=== PATIENT | male | born 2000 | race African-American/Black ===

== ENCOUNTER 2019-02-14 20:45 | Inpatient (IN) | payer OTHER ==
--- NOTE | 2019-02-14 21:15 | RAD ---
TWO VIEW CHEST: 02/14/19 HISTORY: Fever. Lungs are clear. Heart and mediastinum are unremarkable. IMPRESSION: No acute process. POS: [facility]
[2019-02-14 21:22] LABS: Mean Corpuscular Volume 85.5 fL (78.0-98.0)
[2019-02-14] MEDS ORDERED: Ibuprofen 800 MG TAB ONE (21:32)
[2019-02-14 21:33] LABS: Band 3 % (5-11); Lymphocytes 48 % (28-48); MDiff Complete? YES; Mean Corpuscular Hemoglobin 29.1 pg (25.0-35.0); Mean Platelet Volume 8.3 fL (7.4-10.4); Monocytes 2 % (0-4); Neutrophil 47 % (31-61); Platelet Count 129 thou/uL (130-400); Platelet Morphology Comment Appears Adequate; Red Blood Cell (RBC) Count 5.16 mill/uL (4.00-5.20); White Blood Cell (WBC) Count 3.8 thou/uL (4.8-10.8)
[2019-02-14 21:37] LABS: Acetaminophen Less than 6.0 mcg/mL (10.0-30.0); Alcohol Less than 10 mg/dL (Less than 10); Salicylate Less than 8.0 mg/dL (15.0-30.0)
[2019-02-14 21:39] LABS: ALT (SGPT) 18 U/L (8-55); AST (SGOT) 25 U/L (5-34); Albumin 4.1 g/dL (3.5-5.0); Alkaline Phosphatase 133 U/L (Less than 750); Anion Gap 17 mmol/L (10-20); BUN (Urea Nitrogen) 20 mg/dL (8.9-20.6); Bilirubin, Total 0.7 mg/dL (0.2-1.2); Calc. Creatinine Clearance 0 mL/min (70-130); Calcium 9.4 mg/dL (7.8-10.44); Carbon Dioxide 23 mmol/L (22-29); Chloride 103 mmol/L (98-107); Estimated GFR-MDRD 69; Globulin 4.4 g/dL (2.4-3.5); Glucose 84 mg/dL (70-105); Potassium 4.2 mmol/L (3.5-5.1); Protein, Total 8.5 g/dL (6.0-8.3); Sodium 139 mmol/L (136-145)
[2019-02-14 21:54] LABS: Bilirubin Negative (Negative); Blood, Urine Negative (Negative); Clarity CLEAR (Clear); Glucose, Urine (Dipstick) Negative (Negative); Leukocyte Negative (Negative); Nitrite Negative (Negative); Protein, Urine (Dipstick) Negative (Neg-Trace); Specific Gravity, Urine 1.022 (1.002-1.036); pH, Urine 6.5 (5.0-9.0)
[2019-02-14 22:03] LABS: Amphetamine Not Detected (NotDetected); Barbiturates Screen Not Detected (NotDetected); Benzodiazepine Screen Not Detected (NotDetected); Cocaine Metabolite Screen Not Detected (NotDetected); Medtox Control Line Valid? VALID (VALID); Medtox Reader # READER 4; Methadone Not Detected (NotDetected); Methamphetamine Not Detected (NotDetected); Opiate Screen Not Detected (NotDetected); Oxycodone Screen Not Detected (NotDetected); Phencyclidine (PCP) Not Detected (NotDetected); THC/Cannabinoid Screen Not Detected (NotDetected); Tricyclic Screen Not Detected (NotDetected)
[2019-02-14] MEDS ORDERED: Acetaminophen 500 MG TAB ONE (22:19)
[2019-02-15 00:01] LABS: HIV (1/2) Antibody/Antigen Non-Reactive (NonReactive); HIV 1/2 INDEX 0.13 S/CO (<1.00)
[2019-02-15] MEDS ORDERED: Lidocaine 1% (PF) 30 ML VIAL ONE (00:01)
[2019-02-15] MEDS ORDERED: Lorazepam 2 MG/ML VIAL ONE (00:15)
[2019-02-15] MEDS ORDERED: cloNIDine 0.1 MG TAB ONE (00:56)
[2019-02-15] MEDS ORDERED: Dexamethasone 10 MG/ML VIAL ONE (00:56)
[2019-02-15] MEDS ORDERED: Cefepime 1 GM VIAL ONE (00:56)
[2019-02-15 01:02] LABS: CSF Source CSF; Tube # 4
[2019-02-15 01:05] LABS: Clarity Clear (Clear)
[2019-02-15 01:11] LABS: CSF Source CSF; RBC Count - Manual 1 /cumm (None Seen); WBC/NonHematics Count - Manual 1 /cumm (0-5)
[2019-02-15 01:20] LABS: Clarity Clear (Clear); Tube # 1; WBC/NonHematics Count - Manual 3 /cumm (0-5)
[2019-02-15 01:21] LABS: RBC Count - Manual 391 /cumm (None Seen)
[2019-02-15 01:37] LABS: MONO NEGATIVE CONTROL ZONE White (Negative) (White); MONO POSITIVE CONTROL Pink Line (Positive) (PINK/RED); Mononucleosis NEGATIVE (NEGATIVE)
[2019-02-15 01:38] LABS: Color Of CSF Supernatant COLORLESS (Colorless); Tube # 2; Unspun CSF Color COLORLESS (Colorless)
[2019-02-15 01:40] LABS: CSF, Glucose 66 mg/dl (40-70); CSF, Protein 19 mg/dL (15-40)
[2019-02-15] MEDS ORDERED: Senokot S 8.6-50 MG TAB PO PRN (02:41)
[2019-02-15] MEDS ORDERED: Acetaminophen 325 MG TAB PO PRN (02:41)
[2019-02-15 03:32] VITALS: BMI 25.7
[2019-02-15] MEDS: Sodium Chloride 0.9% 1,000 ML IV SCH ×3 (04:01→20:53)
--- NOTE | 2019-02-15 04:24 | HP ---
CHIEF COMPLAINT: Fever. HISTORY OF PRESENT ILLNESS: The patient is a very pleasant 18-year-old male with no past medical history who presents to the hospital with complaints of fever. The patient recently moved from [facility] about 2 years ago. 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 The patient is very health conscious, goes to the gym, does heavy lifting and has been doing that since he was in [facility]. The patient also states that he has had a history of malaria back in 2017 when he was in [facility], which was treated according to him. The patient stated that he was at work when he started noticing some significant pain to his neck area. Initially, he attributed that to lifting in the gym. However, the pain got worse, which followed by shaking and back and joint pain. At this time, he told his food service supervisor, who prescribed him Aleve and the patient came home. The patient stated that he was very cold. His sister then gave him Theraflu that night and he was able to sleep. However, the patient states that he has been having night sweats to the point that he has to change his clothes. The patient then made an appointment at [facility], however, prior to getting to the appointment, he had some shrimp and after having the shrimp, he noticed his ears feeling hot and itchy and he broke out into a little rash. He denied any respiratory symptoms. At this time, when he went to his appointment to [facility], they treated his rash, I believe it is with some steroids, I am not exactly sure since the patient does not recall the name of the medication. The patient stated that he started feeling well. He actually was improving, however, yesterday evening around 5:00 p.m., while he was playing video games with his brother, he started having the similar symptoms that he had on Monday. He felt cold, was shaking, started having body aches and pains. At this time, he went to the [facility], however, [facility] was closed, so he came into the ER for further evaluation. The patient denies any weight loss. However, he has been having on and off night sweats since 2016. The patient states that at least once a year, he normally gets ill. PAST MEDICAL HISTORY: Denies any past medical history. PAST SURGICAL HISTORY: Denies. ALLERGIES: HE IS ALLERGIC TO SHELLFISH. HE HAS HAD SIMILAR ALLERGIC REACTION WHEN HE ATE SHRIMP AND CRAB. FAMILY HISTORY: Denies any history of heart disease, cancers, or strokes. MEDICATIONS: He takes none. SOCIAL HISTORY: He denies any alcohol use, drug use, or smoking history. He has been sexually active in the past and has used protection. REVIEW OF SYSTEMS: All negative except for the ones mentioned above in the HPI. PHYSICAL EXAMINATION: VITAL SIGNS: As the following; temperature of 102 in the ER, heart rate of 115, blood pressure of 120/60. GENERAL: He is awake, alert, and oriented x3. Does not appear in any distress. HEENT: Normocephalic, atraumatic. No lymphadenopathy noted. Pupils are equal and reactive to light. CV: S1, S2 present. No murmurs, rubs, or gallops. LUNGS: Clear to auscultation. No rhonchi or wheezes noted. ABDOMEN: Soft and nontender. Bowel sounds are present x2. EXTREMITIES: No edema. Pedal pulses present x2. NEUROVASCULAR: No focal deficits noted. SKIN: No cuts, lesions or bruises noted. He does have some tattooing around. LABORATORY RESULTS: As of the following; WBC of 3.8, hemoglobin of 15.0, hematocrit of 44.1, platelets of 129. Chemistry; sodium of 139, potassium 4.2, BUN of 20, creatinine of 1.33. Troponin is negative. C-reactive protein was 4.20. LDH was 397. Procalcitonin was 4.68. His urine appeared to be normal. He did have an LP, which indicated wbc's of 1 and rbc's of 1 in tube 4, and 3 wbc's in tube 1 and 391 rbc's in tube 1. Glucose was 66, protein was 19. The patient also had an HIV test, which was negative. He had a UDS, which was negative. Brantley screen was negative. ASSESSMENT AND PLAN: The patient is a 18-year-old male who presents to the hospital with complaints of fever. 1. Fever of unknown source. Given the patient's recent move from [place] to the [facility], one would rule out any infectious etiology such as malaria or TB. Also autoimmune is another possibility and also lymphoma is another possibility. I will go ahead and order a CT chest, abdomen, and pelvis with contrast to rule out any abnormalities such as lymphoma or any other source of his infection. I have already ordered an BARBARA. We will also check an LDH. We will also check an interferon gold. I will consult Infectious Disease and the patient might need a peripheral smear for malaria. His human immunodeficiency virus was negative. Blood cultures are drawn. We will send cultures for cerebrospinal fluid. The patient denies any recent pet exposure or any farming. 2. Pancytopenia. Again, this could be secondary to either autoimmune versus something that is going on currently. A viral etiology is definitely a possibility. His influenza that was checked was negative. Also, a strep was checked, which was negative. We will continue to monitor. We will prophylactically treat it with antibiotics and continue to monitor. I will also start him on some IV hydration. Job ID: [id number]
[2019-02-15] MEDS: Piperacillin/Tazobactam 3.375 GM in Sodium Chloride 0.9% 100 ML IVPB SCH ×2 (05:10→12:30)
[2019-02-15 05:27] LABS: #Eosinphils 0.1 thou/uL (0.0-0.7); #Lymphocytes 0.6 thou/uL (1.20-3.40); #Monocytes 1.2 thou/uL (0.11-0.59); %Basophils 0.1 % (0.0-1.0); %Eosinophils 0.6 % (0.0-10.0); %Lymphocytes 5.1 % (28.0-48.0); %Monocytes 11.1 % (0.0-4.0); %Neutrophils 83.1 % (31.0-61.0); Hemoglobin 13.8 g/dL (14.0-18.0); Mean Corpuscular HGB CONC 31.6 g/dL (32.0-36.0); Mean Corpuscular Hemoglobin 27.7 pg (25.0-35.0); Mean Corpuscular Volume 87.5 fL (78.0-98.0); Mean Platelet Volume 8.1 fL (7.4-10.4); Platelet Count 115 thou/uL (130-400); RBC Distribution Width 10.9 % (11.5-14.5); White Blood Cell (WBC) Count 10.8 thou/uL (4.8-10.8)
[2019-02-15 05:42] LABS: Anion Gap 12 mmol/L (10-20); BUN (Urea Nitrogen) 15 mg/dL (8.9-20.6); Calc. Creatinine Clearance 106 mL/min (70-130); Calcium 8.6 mg/dL (7.8-10.44); Carbon Dioxide 19 mmol/L (22-29); Chloride 109 mmol/L (98-107); Estimated GFR-MDRD Greater than 90; Glucose 141 mg/dL (70-105); Potassium 4.3 mmol/L (3.5-5.1); Sodium 136 mmol/L (136-145)
--- NOTE | 2019-02-15 07:33 | CT ---
PRELIMINARY REPORT/[facility]/EMERGENCY AFTER HOURS PROCEDURE: EXAM: CT Head Without Contrast EXAM DATE/TIME: 02/15/2019 12:08 AM CLINICAL HISTORY: 18 years old, male; Pain; Patient HX: Er 5. Headache; 18 yo male presents with a fever for 1.5days. He endorses chills as well. Denies cough, runny nose, shortness of breath. Says he was tested for the flu yesterday and it was negative. TECHNIQUE: Imaging protocol: Axial computed tomography images of the head without contrast. COMPARISON: No relevant prior studies available. FINDINGS: Brain: Normal. No hemorrhage. Unremarkable white matter. No mass effect. Ventricles: Normal. No ventriculomegaly. Bones/joints: Unremarkable. No acute fracture. Sinuses: Visualized sinuses are unremarkable. No fluid levels. Mastoid air cells: Visualized mastoid air cells are well aerated. No mastoid effusion. Soft tissues: Unremarkable. IMPRESSION: No acute intracranial abnormality. Thank you for allowing us to participate in the care of your patient. Dictated and Authenticated by: Zafar Crowley MD 02/15/2019 12:34 AM Central Time ([place] & [place]) Final report by Dr. Hameed Emergency after-hours study CT BRAIN NONCONTRAST: DATE: 02/15/2019 HISTORY: 18-year-old male with headache and fever FINDINGS: There is no evidence of acute intra-axial or extra-axial hemorrhage. There is no midline shift or any other mass effect. There is no extra-axial fluid collection. The ventricles are normal in size and configuration. The tympanomastoid cavities, and the upper portions of the paranasal sinuses included in these images, are grossly clear. Calvarium is intact. Agree with preliminary report by [facility]. IMPRESSION: Normal. Transcribed Date/Time: 02/15/2019 7:42 AM
--- NOTE | 2019-02-15 08:30 | CT ---
PRELIMINARY REPORT/[facility]/EMERGENCY AFTER HOURS PROCEDURE: EXAM: CT Chest With Contrast EXAM DATE/TIME: 02/15/2019 2:33 AM CLINICAL HISTORY: 18 years old, male; Signs and symptoms; Patient HX: Er 5. . Fever; PT reports shaking chills starting several days ago. Reports on and off fevers. Reports neck pain and back pain. TECHNIQUE: Imaging protocol: Axial computed tomography images of the chest with intravenous contrast. Coronal reformatted images were created and reviewed. COMPARISON: No relevant prior studies available. FINDINGS: Lungs: Normal. No consolidation. No masses. Pleural space: Normal. No pneumothorax. No pleural effusion. Heart: Normal. No cardiomegaly. No pericardial effusion. Mediastinum: Esophagus is unremarkable. Pulmonary arteries: Study not protocoled to evaluate for pulmonary embolus. No evidence of a large ce ntral PE. Aorta: Normal. No aortic aneurysm. Lymph nodes: Unremarkable. No enlarged lymph nodes. Bones/joints: Unremarkable. No acute fracture. Soft tissues: Unremarkable. IMPRESSION: No acute findings. EXAM: CT Abdomen and Pelvis With Contrast EXAM DATE/TIME: 02/15/2019 2:33 AM CLINICAL HISTORY: 18 years old, male; Signs and symptoms; Patient HX: Er 5. . Fever; PT reports shaking chills starting several days ago. Reports on and off fevers. Reports neck pain and back pain. TECHNIQUE: Imaging protocol: Axial computed tomography images of the abdomen and pelvis with intravenous contras t. Coronal reformatted images were created and reviewed. COMPARISON: No relevant prior studies available. FINDINGS: ABDOMEN: Liver: Normal. No mass. Gallbladder and bile ducts: Normal. No calcified stones. No ductal dilation. Pancreas: Normal. No ductal dilation. Spleen: Normal. No splenomegaly. Adrenals: Normal. No mass. Kidneys and ureters: Normal. No hydronephrosis. Stomach and bowel: No bowel wall thickening or intestinal obstruction. Appendix: Normal appendix. PELVIS: Bladder: Unremarkable as visualized. Reproductive: Unremarkable as visualized. ABDOMEN and PELVIS: Intraperitoneal space: Normal. No free air. No significant fluid collection. Bones/joints: No acute fracture. No dislocation. Soft tissues: Unremarkable. Vasculature: Normal. No abdominal aortic aneurysm. Lymph nodes: Normal. No enlarged lymph nodes. IMPRESSION: No acute findings. Thank you for allowing us to participate in the care of your patient. Dictated and Authenticated by: Zafar Crowley MD 02/15/2019 2:50 AM Central Time ([place] & [place]) CHEST CT WITH CONTRAST ABDOMEN CT WITH CONTRAST PELVIS CT WITH CONTRAST: Date: 02/15/19 HISTORY: Fever. Chills. Pain. FINDINGS: CHEST CT: Unremarkable mediastinum. No consolidation. No pleural effusion or pneumothorax. ABDOMEN CT: Appropriate enhancement of the solid organs. Nonspecific mild periportal edema. Symmetric enhancement of the kidneys. No obstructive uropathy. Limited evaluation of the alimentary canal by the lack of oral contrast. There does appear to some fe calization of ileum in the left lower quadrant with some mid bowel wall thickening. Absence of viscer al fat and oral contrast administration renders this examination somewhat limited. This is in minor d isagreement with the preliminary report by [facility]. PELVIC CT: No acute pelvic pathology. IMPRESSION: Small bowel pathology as described above, which may be due to a nonspecific enteritis. Clinical corre lation is essential. Results of study discussed with Micah, patient's nurse, on 02/15/19 at 0809 hours. CODE CR. POS: OFF
--- NOTE | 2019-02-15 08:57 | PDOC.EVN ---
Event Note - Event Note Event Note: Patient's record reviewed. Patient feels fine right now. Amended report from radiology on CT abdomen indicating some possible enteritis noted. Patient denies any abd. discomfort or GI symptoms. Currently a fever of unknown etiology. Had some associated neck pain and recent apparent allergic reaction to shrimp. Negative LP. Hx of malaria. ID consult pending. Procalcitonin is high. Lactic acid normal.
[2019-02-15] MEDS ORDERED: Vancomycin HCl 750 MG in Sodium Chloride 0.9% 250 ML 250 ML IVPB SCH (09:00)
[2019-02-15] MEDS ORDERED: ISOVUE-370 76%-LOCM 1 ML ONE (10:40)
[2019-02-15] MEDS ORDERED: Vancomycin HCl 1 GM in Premix Bag 1 BAG IVPB SCH (13:00)
[2019-02-15 18:20] LABS: % Infected Cells W/Parasite Less than 0.1%
[2019-02-15 20:02] LABS: Chlam.trachomatis by PCR,Urine Not Detected (NotDetected)
[2019-02-15] MEDS: Doxycycline 100 MG CAP PO SCH (20:50)
--- NOTE | 2019-02-15 23:16 | CON ---
DATE OF CONSULTATION: 02/15/2019 REASON FOR CONSULTATION: Fever. HISTORY OF PRESENT ILLNESS: A 18-year-old who has a history of prior episodes of malaria, most recent one was in 2017 in [facility] [place] [facility] [place] and immigrated to [facility] about 2 years prior and lives with family members in town. 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 He is heterosexual, but does not have a girl friend, last sexual activity a few months ago. He had has no recent travel, has not been back to [facility] and there is no family members with any illness that he recalls and he was in his usual state of health until a few days ago when he developed pain in the right back area and neck area and some rib cage type of pain, both in right and left side when he took a deep breath. He had some chill, states he took some TheraFlu, but did get better, made an appointment at [facility] and he developed a little rash, got a little itchy, was given some corticosteroids at [facility] for a rash, felt some improvement and then had recrudescence of fever and shaking chills, aches, he was admitted then. INITIAL FINDINGS: Temperature 102, he was tachycardic, BP 120/60. Other elements of the examination were unremarkable. LABORATORY DATA: The initial labs with white cell count of 3.8, platelets 129, 2% bands. Chemistry: Creatinine 1.33. Serum total protein 8.5, globulin 4.4. Urinalysis with 2+ urobilinogen. Transaminases and bilirubin within normal limits. He had a CSF tap, which was normal. Toxic screen negative. HIV negative. Knott screen negative. IMAGING: Chest, abdomen and pelvis CT with no significant findings except for what the 2nd radiologist describes as a small bowel thickening, this was without contrast imaging study. Right now he looks okay. Denies any headaches, visual symptoms, sore throat, odynophagia, dysphagia. No dyspnea or back pain. All the other areas of pain have resolved. No abdominal pain. No genitourinary symptoms. No diarrhea. No bleeding. No joint symptoms, although earlier he did have some shoulder and elbow pain, right and left side. PAST MEDICAL HISTORY: Malaria in [facility] in 2017, otherwise fairly healthy. PAST SURGICAL HISTORY: None. ALLERGIES: NONE. FAMILY HISTORY: Noncontributory. SOCIAL HISTORY: He is naturally from [facility]. Has been in the [place] for 2 years now. 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 He is heterosexual, but his last sexual activity was many months ago. Does not smoke or drink. No drug use. CURRENT MEDICATIONS: 1. Tylenol. 2. Zosyn. 3. Vancomycin. He had been afebrile since admission. Skin exam normal. No lymphadenopathy. Ocular movements conjugate. Sclerae white. Pupils are equal. Oral cavity normal. Teeth in good shape. Neck is supple. No jugular vein distention. LUNGS: Symmetric. Clear breath sounds. HEART: S1, S2. Regular rate. No S3 or S4. ABDOMEN: Soft, not distended or tender. No ascites. No bladder distention. No joint inflammatory activity. NEUROLOGIC: Nonfocal. Cognitive function normal. LABORATORY DATA: Labs have been reviewed above. The white cell count is up to 10.8, hemoglobin 13.8, platelets 115,000. ASSESSMENT: 1. Febrile illness in a patient who has a history of previous malaria, treated last time in 2017 in [facility]. 2. Fever with thrombocytopenia and nonspecific areas of pain, which have resolved. DISCUSSION: Differential diagnosis includes rickettsial versus recrudescence of malaria, other arthropod-borne infections including West Nile will need to be considered as well, but less likely. Check West Nile IgG IgM, Ehrlichia, Rickettsia, IgG IgM, malaria smears. Discontinue antimicrobials and start doxycycline p.o. Job ID: [id number]
[2019-02-16 07:33] VITALS: BP 116/57; TEMP 98.2
[2019-02-16] MEDS: Doxycycline 100 MG CAP PO SCH (08:13)
[2019-02-16] MEDS: Sodium Chloride 0.9% 1,000 ML IV SCH (08:14)
[2019-02-16] MEDS ORDERED: PROGUANIL HCL PO SCH ×2 (09:00)
[2019-02-16] MEDS ORDERED: ATOVAQUONE PO SCH ×2 (09:00)
--- NOTE | 2019-02-17 22:23 | DIS ---
DATE OF ADMISSION: 02/15/2019 DATE OF DISCHARGE: 02/16/2019 DISCHARGE DIAGNOSES: 1. Malaria. 2. Pancytopenia, resolved. HISTORY OF PRESENT ILLNESS: The patient is a 18-year-old young man from [facility] in [facility] with some history of malaria, who presented via the emergency department primarily with relapsing fever. The patient had recently eaten some shrimp and had what he thought was an allergic reaction, resolved, but then subsequently had some fever again. His white count was 3.8, hemoglobin 15, platelets of 129. CRP was slightly elevated at 4.2, procalcitonin was elevated at 4.68. In the ER, the patient had a lumbar puncture, which was largely unremarkable on initial studies. Braxton screen was negative. Urine drug screen was negative. His exam was largely unremarkable. HOSPITAL COURSE: The patient was admitted with fever of unknown origin in a person from [facility]. He was seen in consultation by Dr. Cid. We did some additional workup including peripheral smears. Of note, the patient had negative chest x-ray, brain CT, CT chest, abdomen, and pelvis. The radiologist subsequently called me indicating there was some possible concern for enteritis. However, the patient had no abdominal pain or GI related symptoms. Dr. Cid' workup included a peripheral smear that ultimately did come back with Plasmodium positive. Subsequently, the patient was started on Malarone and was felt to be stable for discharge. PHYSICAL EXAMINATION: VITAL SIGNS: On the day of discharge, temperature was 98.2, pulse 59, respirations 14, O2 saturation 100% on room air, BP 116/57. The patient was awake, alert, oriented, pleasant, and cooperative. HEART: Regular rate and rhythm. LUNGS: Clear bilaterally. ABDOMEN: Benign. EXTREMITIES: Warm and dry. DISPOSITION: The patient is discharged to home. ACTIVITY: As tolerated. He will have no restrictions. DISCHARGE MEDICATIONS: He will be on Malarone 250/100 four p.o. daily for 3 days. He was given malaria precautions instructions. FOLLOWUP: He is to follow up and see Dr. Cid next week. He can return to the hospital should he have any problems prior to that time. Job ID: [id number]
[2019-02-18 11:37] LABS: ANA Symphony (Qualitative) Negative (Negative); ANA Symphony (Quantitative) 0.2 Ratio (< 0.7 Negative); dsDNA IgG Antibody 8.9 IU/mL (<10 Negative)
[2019-02-19 12:13] LABS: West Nile Virus IgG Ab Negative (Negative); West Nile Virus IgM Ab Negative (Negative)
== END 2019-02-16 10:55 | disposition home or self-care (01) | DRG 864 ==
LOC: ERS 20:45 → 2NO 02-15 03:09
PROVIDERS: ADMIT Internal Medicine; ATTEND Internal Medicine
DX: R50.9 Fever, unspecified (principal); D61.818 Other pancytopenia; R00.0 Tachycardia, unspecified; D69.6 Thrombocytopenia, unspecified
CPT/HCPCS: 36415; 62270; 70450; 71046; 71260; 74177; 80048; 80053; 80306; 80307; 81003; 82945; 83605; 83615; 84145; 84157; 84484; 85025; 85060; 85652; 86038; 86140; 86225; 86308; 86788; 86789; 87040; 87070; 87081; 87086; 87205; 87207; 87389; 87430; 87491; 87591; 87804; 89051; 93005; 96361; 96365; 96375; J0692; J1100; J2001; J2060; J2543; J3370; J3490